=== PATIENT | male | born 1995 | race Caucasian/White ===

== ENCOUNTER → 2016-09-02 | Outpatient (REF) | payer OTHER ==
[2016-09-02 15:05] LABS: SPERM ABNORMAL FORMS WBC'S NOTED
[2016-09-02 15:06] LABS: IMMOTILITY 98 %; NON PROGRESSIVE MOTILITY (c) 2 %; PROGRESSIVE MOTILITY (a) 0 % (>=32); TOTAL MOTILITY 2 % (>=40)
[2016-09-02 15:07] LABS: % NORMAL FORMS < 4 % (>=4)
[2016-09-02 15:08] LABS: SPERM# 90 M/Ejac (33-46); TOTAL FUNCTIONAL 0 M/Ejac.; TOTAL PROGRESSIVE SPERM 0 M/Ejac.
== END ==
LOC: M LAB REF 14:16
PROVIDERS: ATTEND Physician Assistant
DX: N46.8 Other male infertility (principal)

== ENCOUNTER → 2016-09-09 | Outpatient (REF) | payer OTHER ==
[2016-09-09 11:12] LABS: #IMMOTILE SPERM COUNTED 5; #MOTILE SPERM COUNTED 1; % MOTILITY 17 (> 25%); SPERM ABNORMAL FORMS WBC'S NOTED; TOTAL # SPERM COUNTED 6 M/ml
== END ==
LOC: M SMT 11:04
PROVIDERS: ATTEND Nurse Practitioner Women's Health
DX: N46.11 Organic oligospermia (principal)

== ENCOUNTER → 2016-09-09 | Outpatient (CLI) | payer OTHER ==
--- NOTE | 2016-09-10 04:09 | REP ---
Clinical: Oligospermia. Technique: Shay scale and color Doppler evaluation using linear and curved array transducer with color Doppler evaluation. Findings: The testicles and epididymi are relatively normal in contour, size, echogenicity, vascularity and overall appearance/contour. There is no evidence for intratesticular mass lesion, infectious/inflammatory process, with torsion. Incidental note is made of a 2 mm left epididymal head cyst. Mild bilateral hydroceles are suggested (left greater than right) measuring up to approximately 2.8 mm. Small insignificant hydroceles noted bilaterally. Right testicle measures 5.2 x 2.0 x 3.1 cm cm. Left testicle measures 4.7 x 1.9 x 3.0 cm cm. Impression: Mild varicoceles suggested (left greater than right). Signed by Gregor Yen MD 09/10/2016 04:00 A
== END ==
LOC: M LAB 11:03
PROVIDERS: ATTEND Nurse Practitioner Women's Health
DX: N46.11 Organic oligospermia (principal); I86.1 Scrotal varices

== ENCOUNTER → 2017-01-03 | Outpatient (REF) | payer OTHER ==
[~2017-01-03] MED LIST: BACT800T5 PO; CLOM50TA9 PO; ERYTOIN8 OD; TYLE650T35 PO
[2017-01-03 11:54] LABS: #IMMOTILE SPERM COUNTED 3; #MOTILE SPERM COUNTED 0; % MOTILITY 0 (> 40%); SPERM ABNORMAL FORMS WBC'S NOTED; TOTAL # SPERM COUNTED 3 M/ml
== END ==
LOC: M LAB REF 11:39
PROVIDERS: ATTEND Urology
DX: N46.11 Organic oligospermia (principal)

== ENCOUNTER 2017-02-03 00:55 | Emergency (ER) | payer OTHER ==
[~2017-02-03] VITALS: Ht 177.8 cm; Wt 70.0 kg
[~2017-02-03 00:55] MED LIST changes: -BACT800T5 PO; -ERYTOIN8 OD; -TYLE650T35 PO
[2017-02-03] MEDS ORDERED: TETRACAINE 0.5% OPHTH SOLN 4ML OD ONE (01:45)
[2017-02-03] MEDS ORDERED: FLUORESCEIN OPHTH 1 MG STRIP OD ONE (01:45)
[2017-02-03] MEDS ORDERED: ERYTOIN8 OD (02:27)
[2017-02-03] MEDS ORDERED: ERYTHROMYCIN OPHTH OINT OD ONE (02:30)
[2017-02-03 02:39] VITALS: BP 131/72
== END 2017-02-03 02:45 | disposition home or self-care (01) ==
LOC: M ED 00:55
DX: S05.01XA Injury of conjunctiva and corneal abrasion without foreign body, right eye, initial encounter (principal); W22.8XXA Striking against or struck by other objects, initial encounter; Y92.821 Forest as the place of occurrence of the external cause; Y93.89 Activity, other specified; Y99.8 Other external cause status; Z79.899 Other long term (current) drug therapy

== ENCOUNTER → 2017-02-05 | Outpatient (CLI) | payer OTHER ==
[~2017-02-05] MED LIST changes: +BACT800T5 PO; +ERYTOIN8 OD; +TYLE650T35 PO
--- NOTE | 2017-02-05 13:53 | REP ---
Chest two views HISTORY: Preop Comparison: None The lungs are clear. The heart is normal in size. The pulmonary vasculature is normal in appearance. The bony structure is intact. IMPRESSION: No acute disease. Signed by Sandip Hastings MD 02/05/2017 01:44 P
[2017-02-05 18:47] LABS: MEAN CORPUSCULAR HGB CONC 35.5 g/dl (32.0-36.5); MEAN CORPUSCULAR VOLUME 87.4 fl (80.0-96.0); RED CELL DISTRIBUTION WIDTH 11.9 % (11.5-14.5); WHITE BLOOD COUNT 5.4 10^3/uL (4.0-10.0)
[2017-02-05 18:49] LABS: INR 1.09
[2017-02-05 19:43] LABS: ANION GAP 7 MEQ/L (8-16); BLOOD UREA NITROGEN 11 MG/DL (7-18); CALCIUM LEVEL 9.1 MG/DL (8.5-10.1); CARBON DIOXIDE LEVEL 31 MEQ/L (21-32); CHLORIDE LEVEL 102 MEQ/L (98-107); CREATININE FOR GFR 1.09 MG/DL (0.70-1.30); GLOMERULAR FILTRATION RATE > 60.0 (>60); GLUCOSE, FASTING 123 MG/DL (70-105); POTASSIUM SERUM 3.9 MEQ/L (3.5-5.1); SODIUM LEVEL 140 MEQ/L (136-145)
== END ==
LOC: M SMT 13:17
PROVIDERS: ATTEND Urology
DX: N46.11 Organic oligospermia (principal); I86.1 Scrotal varices

== ENCOUNTER 2017-02-11 13:11 | Day surgery (SDC) | payer OTHER ==
[~2017-02-11] VITALS: Ht 177.8 cm; Wt 68.9 kg
[~2017-02-11 13:11] MED LIST changes: -BACT800T5 PO; -TYLE650T35 PO
[2017-02-11] MEDS ORDERED: LR 1,000 ML IV SCH ×2 (13:30→18:45)
[2017-02-11] MEDS ORDERED: fentaNYL 100 MCG/2 ML INJECTION (J3010) As Ordered ONE ×2 (15:33→17:39)
[2017-02-11] MEDS ORDERED: LIDOCAINE 2% INJ 100 MG/5 ML SYRINGE As Ordered ONE (15:33)
[2017-02-11] MEDS ORDERED: PROPOFOL 200 MG/20 ML VIAL As Ordered ONE ×2 (15:33→17:54)
[2017-02-11] MEDS ORDERED: MIDAZOLAM INJ 2 MG/2 ML VIAL (J2250) As Ordered ONE (15:34)
[2017-02-11] MEDS ORDERED: LIDOCAINE 2% MDV 20 ML VIAL As Ordered ONE (17:06)
[2017-02-11] MEDS ORDERED: BUPIVACAINE HCL 0.25% 30 ML VIAL As Ordered ONE (17:07)
[2017-02-11] MEDS ORDERED: dexameTHASONE 4 MG/ML 1ML VIAL (J1100) As Ordered ONE (17:39)
[2017-02-11] MEDS ORDERED: ONDANSETRON 4MG/2ML VIAL (J2405) As Ordered ONE (17:48)
[2017-02-11] MEDS ORDERED: KETOROLAC 60 MG/2 ML VIAL (J1885) As Ordered ONE (18:02)
[2017-02-11] MEDS ORDERED: TYLE650T35 PO (18:24)
[2017-02-11] MEDS ORDERED: BACT800T5 PO (18:24)
[2017-02-11] MEDS ORDERED: fentaNYL 100 MCG/2 ML INJECTION (J3010) IV PRN (18:45)
[2017-02-11] MEDS ORDERED: ONDANSETRON 4MG/2ML VIAL (J2405) IV PRN (18:45)
[2017-02-11 19:28] VITALS: BP 131/83
[2017-02-11] MEDS ORDERED: BACTRIM 160MG/800MG DS TAB PO SCH (21:00)
[2017-02-11] MEDS ORDERED: ACETAMINOPHEN 650MG ER TAB (TYLENOL ARTHRITIS) PO SCH (22:00)
--- NOTE | 2017-02-12 07:04 | RO ---
DATE OF PROCEDURE: 02/11/2017 PREOPERATIVE DIAGNOSIS: Left varicocele. POSTOPERATIVE DIAGNOSIS: Left varicocele. PROCEDURE: Open left varicocele repair. SURGEON: Dr. Moshe Degroot. TELEGRAPH REPEATER TECHNICIAN: None. ANESTHESIA: General. COMPLICATIONS: None. ESTIMATED BLOOD LOSS: N/A. FINDINGS: Left varicocele. HISTORY OF PRESENT ILLNESS: 21-year-old male patient with a grade 3 left varicocele. He has consented for an open left varicocele repair. PROCEDURE DESCRIPTION: With patient under general anesthesia in supine position, after prepping and draping the area of concern which included the entire genitalia and abdomen, we started by doing an incision of about 4 cm in length, transverse incision, 1 cm on top of the external inguinal ring on the left side. Through this incision, we opened Sameer and Camper's fascia with electro Bovie cautery and we split open following the lines of the fascia of the external oblique fascia the inguinal ring. We the proceeded to dissect the spermatic cord and found varicosity veins three in total. We dissected varicosity veins, ligated them with mosquito, cut them and sent three varicosity veins for permanent pathology analysis. We secured hemostasis with #3-0 ties times three. Once there was no bleeding vessels, we dropped the spermatic cord inside the inguinal canal and closed the external oblique fascia in a running fashion with #3-0 Vicryl. We then closed the Sameer and Camper's in one layer with #3-0 Chromic. We closed the skin with subcuticular Monocryl #4-0 stitches. We then applied Mastisol, Steri-Strips, Telfa and Tegaderm. PLAN: The patient will go home today. He will have Bactrim and Tylenol for pain. Before closing, we applied local anesthesia mixture of 1% lidocaine and Marcaine 0.25%, a total of 10 mL. He will followup in [facility] i about 2 weeks. He cannot carry heavy weight, lifting or do exercise for 1 month. There were no complications.
== END 2017-02-11 19:38 | disposition home or self-care (01) ==
LOC: M SDC 13:11
PROVIDERS: ATTEND Urology
DX: I86.1 Scrotal varices (principal); F17.210 Nicotine dependence, cigarettes, uncomplicated; Z79.899 Other long term (current) drug therapy
CPT/HCPCS: 36415; 55535; 86850; 86900; 86901; 88300; J0690; J1100; J1885; J2250; J2405; J3010

== ENCOUNTER → 2017-04-09 | Outpatient (CLI) | payer OTHER ==
[~2017-04-09] MED LIST changes: +BACT800T5 PO; +TYLE650T35 PO
[2017-04-09 10:31] LABS: #IMMOTILE SPERM COUNTED 7; #MOTILE SPERM COUNTED 2; % MOTILITY 22 (> 40%); TOTAL # SPERM COUNTED 9 M/ml
== END ==
LOC: M SMT 08:40
PROVIDERS: ATTEND Nurse Practitioner Women's Health
DX: N46.11 Organic oligospermia (principal)

== ENCOUNTER → 2017-10-27 | Outpatient (CLI) | payer OTHER ==
[2017-10-27 14:16] LABS: ESTRADIOL 33.3 PG/ML (<39.8)
[2017-10-28 14:46] LABS: TESTOSTERONE FREE (DIRECT) 11.3 pg/mL (9.3-26.5)
== END ==
LOC: M SMT 09:59
DX: N46.11 Organic oligospermia (principal)
CPT/HCPCS: 84403

== ENCOUNTER → 2017-11-04 | Outpatient (REF) | payer OTHER ==
[2017-11-04 13:21] LABS: NON PROGRESSIVE MOTILITY (c) 13 %; PROGRESSIVE MOTILITY (a) 9 % (>=32); SEMEN APPEARANCE OPAQUE (OPAQUE); SEMEN VISCOSITY LIQUID (LIQUID); SEMEN pH 8.5 (7.0-8.0); SPERM CONCENTRATION 38.3 M/ml (>=15.0); TOTAL MOTILITY 22 % (>=40); WBC CONCENTRATION <=1 M/ml (<=1 M/ml)
[2017-11-04 13:22] LABS: % NORMAL FORMS < 4 % (>=4); IMMOTILITY 78 %; SPERM# 153.4 M/Ejac (>=39); TOTAL FUNCTIONAL 1.1 M/Ejac.; TOTAL PROGRESSIVE SPERM 13.8 M/Ejac.
== END ==
LOC: M SMT 13:12
DX: N46.11 Organic oligospermia (principal)
CPT/HCPCS: 89320

== ENCOUNTER → 2018-02-16 | Outpatient (CLI) | payer OTHER ==
[2018-02-17 10:05] LABS: SEMEN APPEARANCE OPAQUE (OPAQUE); SEMEN VISCOSITY LIQUID (LIQUID)
[2018-02-17 10:06] LABS: SEMEN pH 8.5 (7.0-8.0)
[2018-02-17 10:07] LABS: WBC CONCENTRATION >1 M/ml (<=1 M/ml)
[2018-02-17 10:08] LABS: IMMOTILITY 99 %; NON PROGRESSIVE MOTILITY (c) 1 %; PROGRESSIVE MOTILITY (a) 0 % (>=32); TOTAL MOTILITY 1 % (>=40)
[2018-02-17 10:10] LABS: SPERM# 38.9 M/Ejac (>=39); TOTAL PROGRESSIVE SPERM 0 M/Ejac.
[2018-02-17 10:13] LABS: % NORMAL FORMS < 4 % (>=4); TOTAL FUNCTIONAL 0 M/Ejac.
[2018-02-18 00:12] LABS: TESTOSTERONE FREE (DIRECT) 4.7 pg/mL (9.3-26.5)
== END ==
LOC: M SMT 09:58
DX: N46.11 Organic oligospermia (principal)

== ENCOUNTER → 2018-07-17 | Outpatient (CLI) | payer OTHER ==
[2018-07-21 00:09] LABS: TESTOSTERONE FREE (DIRECT) 8.8 pg/mL (9.3-26.5)
== END ==
LOC: M SMT 12:35
PROVIDERS: ATTEND Urology
DX: Z31.69 Encounter for other general counseling and advice on procreation (principal)

== ENCOUNTER → 2018-07-17 | Outpatient (REF) | payer OTHER ==
[2018-07-17 13:57] LABS: SEMEN APPEARANCE OPAQUE (OPAQUE); SEMEN VISCOSITY LIQUID (LIQUID); SPERM CONCENTRATION 10.4 M/ml (>=15.0); WBC CONCENTRATION >1 M/ml (<=1 M/ml)
== END ==
LOC: M SMT 12:27
PROVIDERS: ATTEND Urology
DX: Z31.69 Encounter for other general counseling and advice on procreation (principal)

== ENCOUNTER → 2019-02-01 | Outpatient (CLI) | payer OTHER | LOC: M SMT 11:52 | PROVIDERS: ATTEND Urology | DX: N46.9 Male infertility, unspecified (principal) ==